=== PATIENT | female | born 1970 | race Caucasian/White ===

== ENCOUNTER 2018-03-08 10:48 | Day surgery (SDC) | payer OTHER ==
[2018-03-08] MEDS: LACTATED RINGER'S 1,000 ML IV* (06:00)
[2018-03-08] MEDS: CEFAZOLIN 2 GM/50 ML (PMX) 50 ML IVPB (06:30)
[2018-03-08] MEDS: GABAPENTIN 300 MG CAP PO (06:30)
[2018-03-08] MEDS: DEXAMETHASONE 2 MG TAB PO (06:30)
[~2018-03-08 10:48] MED LIST: BUPIVACAINE 0.5% (SDV) 30 ML, morphine SULFATE (PF) 8 MG, EPINEPHrine 0.3 MG, KETOROLAC... IRR; METOPROLOL 5 MG INJ
[2018-03-08] MEDS ORDERED: hydrALAzine 20 MG INJ (15:18)
[2018-03-08] MEDS ORDERED: LABETALOL HCL 20MG INJ (15:18)
[2018-03-08] MEDS: LABETALOL HCL 20MG INJ IV ×2 (15:23→15:35)
[2018-03-08] MEDS ORDERED: FENTAnyl 50 MCG/ML VIAL IV (15:30)
[2018-03-08] MEDS ORDERED: MEPERIDINE 25 MG INJ IV (15:30)
[2018-03-08] MEDS ORDERED: ONDANSETRON 4 MG INJ IV (15:30)
[2018-03-08] MEDS ORDERED: DIPHENHYDRAMINE 50 MG INJ IV (15:30)
[2018-03-08] MEDS ORDERED: METOCLOPRAMIDE 10 MG INJ IV (15:30)
[2018-03-08] MEDS: hydrALAzine 20 MG INJ IV (15:47)
[2018-03-08] MEDS ORDERED: PROPOFOL 20 ML (19:32)
[2018-03-08] MEDS ORDERED: ONDANSETRON 4 MG INJ (19:32)
[2018-03-08] MEDS ORDERED: CEFAZOLIN 1 GM INJ (19:32)
[2018-03-08] MEDS ORDERED: ROPIVACAINE 0.5 % 30 ML VIAL (19:32)
[2018-03-08] MEDS ORDERED: ROCURONIUM 50 MG INJ (19:32)
[2018-03-08] MEDS ORDERED: LIDOCAINE 2% (SDV) 5 ML INJ (19:32)
[2018-03-08] MEDS ORDERED: MIDAZOLAM 1 MG/ML 2 ML INJ (19:32)
== END 2018-03-08 17:20 | disposition home or self-care (01) ==
LOC: SDS 10:48
DX: M25.812 Other specified joint disorders, left shoulder (principal); M19.012 Primary osteoarthritis, left shoulder; S46.212D Strain of muscle, fascia and tendon of other parts of biceps, left arm, subsequent encounter; X58.XXXD Exposure to other specified factors, subsequent encounter
CPT/HCPCS: 29823; 84703